=== PATIENT | female | born 1970 | race Caucasian/White ===

== ENCOUNTER 2017-12-13 09:40 | Inpatient (IN) | payer MEDICAID ==
[2017-12-13] MEDS ORDERED: Dexamethasone 4 MG/ML SDV ONE (09:41)
[2017-12-13] MEDS ORDERED: Succinylcholine 200 MG/10 ML MDV ONE (09:41)
[2017-12-13] MEDS ORDERED: Propofol 200 MG/20 ML SDV ONE (09:41)
[2017-12-13] MEDS ORDERED: Neostigmine Methylsulfate 1 MG/ML 5 ML Syringe ONE (09:41)
[2017-12-13] MEDS ORDERED: Ondansetron 4 MG/2 ML SDV ONE (09:41)
[2017-12-13] MEDS ORDERED: Glycopyrrolate 0.2 MG/ML 5 ML MDV ONE (09:41)
[2017-12-13] MEDS ORDERED: Rocuronium 50 MG/5 ML Vial ONE (09:41)
[2017-12-13] MEDS ORDERED: Acetaminophen 500 MG Tab PO ONE (09:45)
[2017-12-13] MEDS ORDERED: fentaNYL 250 MCG/5 ML SDV ONE ×2 (09:55→11:58)
[2017-12-13] MEDS ORDERED: Albuterol/Ipratropium 3.0-0.5 MG/3 ML Neb Soln NEB ONE (11:05)
[2017-12-13] MEDS ORDERED: ceFAZolin 1 GM in Premix Bag 1 BAG IV ONE (11:15)
[2017-12-13] MEDS: Dextrose 5%-Lactated Ringers 1,000 ML IV SCH ×2 (11:26→17:00)
[2017-12-13] MEDS ORDERED: Ketamine 500 MG/5 ML MDV IV ONE (11:30)
[2017-12-13] MEDS ORDERED: hydrOXYzine HCl 100 MG/2 ML SDV IM ONE (13:40)
[2017-12-13] MEDS ORDERED: Albuterol/Ipratropium 3.0-0.5 MG/3 ML Neb Soln INH PRN (14:38)
[2017-12-13] MEDS ORDERED: Ondansetron 4 MG/2 ML SDV IV PRN (14:38)
[2017-12-13] MEDS ORDERED: Naloxone 0.4 MG/ML SDV IV PRN (14:45)
[2017-12-13] MEDS ORDERED: HYDROmorphone/Normal Saline 15 MG/30 ML PCA IV PRN (14:45)
[2017-12-13] MEDS: Albuterol/Ipratropium 3.0-0.5 MG/3 ML Neb Soln INH SCH ×2 (16:08→21:46)
[2017-12-13] MEDS ORDERED: PROGESTERONE 200 MG PO SCH ×2 (17:00→21:00)
[2017-12-13] MEDS: ceFAZolin 1 GM in Premix Bag 1 BAG IV SCH (17:31)
[2017-12-14] MEDS: ceFAZolin 1 GM in Premix Bag 1 BAG IV SCH ×2 (02:45→09:31)
[2017-12-14] MEDS ORDERED: Acetaminophen/HYDROcodone 325-5 MG Tab PO PRN (07:19)
[2017-12-14] MEDS ORDERED: Ondansetron 4 MG Tab.DIS PO PRN (07:20)
[2017-12-14] MEDS ORDERED: Levothyroxine 112 MCG Tab PO SCH (07:30)
[2017-12-14] MEDS ORDERED: Levothyroxine 100 MCG Tab PO SCH (07:30)
[2017-12-14 07:43] VITALS: BP 131/74
[2017-12-14] MEDS: Albuterol/Ipratropium 3.0-0.5 MG/3 ML Neb Soln INH SCH ×2 (07:46→10:49)
[2017-12-14] MEDS ORDERED: HYDROmorphone 2 MG Tab PO PRN (08:02)
[2017-12-14] MEDS ORDERED: Non-Formulary Medication 1 Each (Estradiol [Estradiol] 1 MG) PO SCH (09:00)
[2017-12-14] MEDS ORDERED: CYTOMEL PO SCH (09:00)
[2017-12-14] MEDS ORDERED: LEVOTHYROXINE SODIUM 100 MCG PO SCH (09:00)
[2017-12-14] MEDS ORDERED: Estradiol 0.5 MG Tab PO SCH (09:00)
[2017-12-14] MEDS ORDERED: PROGESTERONE MICRONIZED 200 MG PO SCH (09:00)
[2017-12-14] MEDS ORDERED: [UNRECOGNIZED DRUG - REMARK] TOP SCH (09:00)
[2017-12-14] MEDS ORDERED: PROGESTERONE 200 MG PO SCH (09:00)
[2017-12-14] MEDS ORDERED: LIOTHYRONINE PO SCH (09:00)
--- NOTE | 2017-12-14 09:56 | PCM.DCSUM1 ---
Discharge Summary - Hospital Course HPI Initial Comments: Patient admitted on 12/13/17 for surgery to remove right thyroid nodule. Brief History: Patient underwent right thyroid lobectomy with frozen section on 12/13/2017. Per pathologist verbal report, the nodule was found to be benign and thyroidectomy was not needed. She remained NPO until 12/14/2017 when diet was advanced to regular. Dressing was removed POD 1 with steri strips left in place. She reported that her pain had been controlled throughout her admission and was wanting to go home on POD 1. She had no voice concerns and was feeling well. She denied having any concerns and felt well on day of discharge. - Discharge Data Discharge Date: 12/14/17 Discharge Disposition: Home, Self-Care 01 Condition: Good - Discharge Diagnosis/Problem(s) (1) Status post thyroidectomy SNOMED Code(s): 438587519, [id number], [id number] ICD Code: E89.0 - POSTPROCEDURAL HYPOTHYROIDISM Status: Acute Current Visit: Yes Problem Details: right lobectomy - Patient Instructions Diet: Usual Diet as Tolerated (avoid hard crunchy foods ), Drink 8-10+ Glasses/ Day Activity: No Lifting Over 10 Pounds (for 6 weeks) Activity, Other: No repetitive head and neck movement Driving: Do Not Drive (while on pain medication) Showering/Bathing: May Shower Wound/Incision Care: Keep Operative Site/Wound Site Clean and Dry Notify Provider of: Swelling and Redness, Drainage, Nausea and/or Vomiting - Discharge Plan Prescriptions/Med Rec: HYDROmorphone [Dilaudid] 2 - 4 mg PO Q4H PRN #30 tablet PRN Reason: Pain Home Medications: Home Meds Estradiol 1 mg PO DAILY 05/13/17 [History] Estradiol [Climara] 2 each TOP WEEKLY 05/13/17 [History] Levothyroxine Sodium [Tirosint] 100 mcg PO DAILY 05/13/17 [History] Liothyronine [Cytomel] 50 mcg PO DAILY 05/13/17 [History] Progesterone,Micronized [Prometrium] 200 mg PO QAM 05/13/17 [History] Progesterone,Micronized [Prometrium] 400 mg PO QPM 05/13/17 [History] HYDROmorphone [Dilaudid] 2 - 4 mg PO Q4H PRN #30 tablet 12/14/17 [Rx] Patient Handouts: Thyroid Lobectomy, Care After, Preventing Constipation After Surgery Referrals: Sidney Castelan MD [Physician] - 12/22/17 9:00 am - General Info Date of Service: 12/14/17 Admission Dx/Problem (Free Text: right thyroid nodule Subjective Update: Patient reports that she is feeling well. States that her neck and throat are a little sore, but pain is controlled. She denies having any concerns and is wanting to go home. Functional Status: Reports: Pain Controlled, Tolerating Diet (ice chips only), Ambulating, Urinating - Review of Systems General: Reports: No Symptoms HEENT: Reports: Sore Throat Pulmonary: Reports: No Symptoms Cardiovascular: Reports: No Symptoms Gastrointestinal: Reports: No Symptoms Genitourinary: Reports: No Symptoms Musculoskeletal: Reports: No Symptoms Skin: Reports: No Symptoms Neurological: Reports: No Symptoms Psychiatric: Reports: No Symptoms - Patient Data Vitals - Most Recent: Last Vital Signs Temp 36.4 C 12/14/17 07:40 Pulse 74 12/14/17 07:54 Resp 16 12/14/17 07:40 BP 131/74 12/14/17 07:40 Pulse Ox 97 12/14/17 07:40 Weight - Most Recent: 72.575 kg I&O - Last 24 hours: Intake & Output 12/13/17 12/14/17 12/14/17 22:59 06:59 14:59 Intake Total 835 1047 Output Total 600 600 Balance 235 447 Med Orders - Current: Current Medications Albuterol/Ipratropium (Duoneb 3.0-0.5 Mg/3 Ml) 3 ml INH QIDRT [facility] Last Admin: 12/14/17 07:46 Dose: 3 ml Albuterol/Ipratropium (Duoneb 3.0-0.5 Mg/3 Ml) 3 ml INH ASDIRECTED PRN PRN Reason: Shortness of Breath Estradiol (Estradiol) 1 mg PO DAILY [facility] Last Admin: 12/14/17 08:52 Dose: Not Given Estradiol (Climara) 0.2 mg TOP Q7D [facility] Hydromorphone HCl (Dilaudid) 2 - 4 mg PO Q4H PRN PRN Reason: Pain Last Admin: 12/14/17 08:12 Dose: 4 mg Dextrose/Lactated Ringer's (Dextrose 5%-Lactated Ringers) 1,000 mls @ 100 mls/ hr IV ASDIRECTED [facility] Last Admin: 12/13/17 17:00 Dose: 100 mls/hr Cefazolin Sodium/Dextrose 1 gm (/ Premix) 50 mls @ 100 mls/hr IV Q8H [facility] Stop: 12/14/17 10:59 Last Admin: 12/14/17 09:31 Dose: 100 mls/hr Levothyroxine Sodium (Synthroid) 100 mcg PO ACBREAKFAST [facility] Last Admin: 12/14/17 07:19 Dose: Not Given Verify Estradiol (Patch) 0 each TOP DAILY [facility] Last Admin: 12/14/17 08:52 Dose: Not Given Ondansetron HCl (Zofran) 4 mg IV Q4H PRN PRN Reason: N/V Ondansetron HCl (Zofran Odt) 4 mg PO Q4H PRN PRN Reason: Nausea/Vomiting Cytomel 25mcg Tab ( (Ptom)) 0 each PO DAILY [facility] Last Admin: 12/14/17 09:34 Dose: 1 each Prometrium 200mg Cap ((Ptom)) 0 each PO DAILY [facility] Last Admin: 12/14/17 09:35 Dose: Not Given Prometrium 200mg Tab ((Ptom)) 0 each PO BEDTIME [facility] Last Admin: 12/13/17 21:46 Dose: 2 each Discontinued Medications Acetaminophen (Tylenol Extra Strength) 1,000 mg PO ONETIME ONE Stop: 12/13/17 09:46 Last Admin: 12/13/17 10:32 Dose: 1,000 mg Hydrocodone Bitart/Acetaminophen ([place] 325-5 Mg) 1 - 2 tab PO Q4H PRN PRN Reason: Pain Albuterol/Ipratropium (Duoneb 3.0-0.5 Mg/3 Ml) 3 ml NEB ONETIME ONE Stop: 12/13/17 11:06 Last Admin: 12/13/17 11:18 Dose: 3 ml Dexamethasone (Dexamethasone) Confirm Administered Dose 4 mg .ROUTE .STK-MED ONE Stop: 12/13/17 09:42 Fentanyl (Sublimaze) Confirm Administered Dose 250 mcg .ROUTE .STK-MED ONE Stop: 12/13/17 09:56 Fentanyl (Sublimaze) Confirm Administered Dose 250 mcg .ROUTE .STK-MED ONE Stop: 12/13/17 11:59 Glycopyrrolate (Robinul) Confirm Administered Dose 1 mg .ROUTE .STK-MED ONE Stop: 12/13/17 09:42 Hydromorphone HCl (Dilaudid Leather Etcher 15 Mg In Ns 30 Ml) 0 mg IV ASDIRECTED PRN; Protocol PRN Reason: INFRASTRUCTURE ANALYST PAIN CONTROL Last Admin: 12/13/17 14:54 Dose: 15 mg Hydroxyzine HCl (Vistaril) 100 mg IM ONETIME ONE Stop: 12/13/17 13:41 Last Admin: 12/13/17 13:32 Dose: 100 mg Cefazolin Sodium/Dextrose 1 gm (/ Premix) 50 mls @ 100 mls/hr IV ONETIME ONE Stop: 12/13/17 11:44 Last Admin: 12/13/17 11:23 Dose: 100 mls/hr Ketamine HCl 100 mg/ Sodium (Chloride) 100 mls @ 17.4 mls/hr IV ASDIRECTED KATHRYN Stop: 12/13/17 13:30 Ketamine HCl (Ketalar) 29 mg IV ONETIME ONE Stop: 12/13/17 11:31 Last Admin: 12/13/17 14:40 Dose: Not Given Naloxone HCl (Narcan) 0.1 mg IV ASDIRECTED PRN PRN Reason: decreased respiratory rate Neostigmine Methylsulfate (Neostigmine) Confirm Administered Dose 5 mg .ROUTE .STK-MED ONE Stop: 12/13/17 09:42 Ondansetron HCl (Zofran) Confirm Administered Dose 4 mg .ROUTE .STK-MED ONE Stop: 12/13/17 09:42 Prometrium 200mg Tab ((Ptom)) 0 each PO QPM [facility] Last Admin: 12/13/17 17:29 Dose: Not Given Propofol (Diprivan 20 Ml) Confirm Administered Dose 200 mg .ROUTE .STK-MED ONE Stop: 12/13/17 09:42 Rocuronium [place] (Zemuron) Confirm Administered Dose 50 mg .ROUTE .STK-MED ONE Stop: 12/13/17 09:42 Succinylcholine Chloride (Quelicin) Confirm Administered Dose 400 mg .ROUTE .STK -MED ONE Stop: 12/13/17 09:42 - Exam General: Reports: Alert, Oriented, Cooperative, No Acute Distress HEENT: Reports: Pupils Equal, Pupils Reactive Neck: Reports: Supple, Other (steri-strips intact over incision) Lungs: Reports: Clear to Auscultation, Normal Respiratory Effort Cardiovascular: Reports: Regular Rate, Regular Rhythm GI/Abdominal Exam: Normal Bowel Sounds, Soft, Non-Tender (Female) Exam: Deferred Rectal (Female) Exam: Deferred Back Exam: Reports: Normal Inspection Extremities: Normal Inspection, No Pedal Edema Skin: Reports: Warm, Dry, Intact Wound/Incisions: Reports: Healing Well, Dressing Dry and Intact (steri strips) Neurological: Reports: No New Focal Deficit Psy/Mental Status: Reports: Alert, Normal Affect, Normal Mood Discharge Operative/Procedures - Procedures Performed Operations: right thyroid lobectomy with frozen section on 12/13/2017
[2017-12-14] MEDS ORDERED: PROGESTERONE MICRONIZED 400 MG PO SCH (17:00)
--- NOTE | 2017-12-21 16:28 | OR ---
DATE OF PROCEDURE: 12/13/2017 PREOPERATIVE DIAGNOSIS: Radiologically suspicious nodule, right thyroid lobe. POSTOPERATIVE DIAGNOSIS: Radiologically suspicious nodule, right thyroid lobe (follicular lesion on frozen section). OPERATIVE PROCEDURE: Thyroid exploration with right thyroid lobectomy and isthmusectomy ([id number]). ANESTHESIA: General. ERECTING CRANE OPERATOR: 1. Pearl Baldwin PA-C. 2. MARY An. 3. MARY Pearce. INDICATION FOR PROCEDURE: This 47-year-old presenting with a right thyroid nodule. Fine- needle aspiration of this was more or less nondiagnostic. The patient does sense some pressure symptoms in that area and is quite worried about potential carcinoma. She is aware that in all likelihood this will be benign, but wishes to proceed with a right thyroid lobectomy for definitive treatment of this nodule. Plan will be to proceed with the thyroid lobectomy with a frozen section. If malignancy is identified, we will then do a total thyroidectomy and if no to be based on operative findings. She is aware there is possibility that on the initial frozen section today, the findings appear to be benign, and later on found to have component of malignancy requiring re-operation for completion of the total thyroidectomy. Otherwise, potential risk including bleeding, infection, injury to the recurrent laryngeal nerve and parathyroid glands (the sequelae of these latter two potential complications had been reviewed with the patient), and she wishes to proceed. She is aware that she will likely be recommended to have a lifelong thyroid supplementation, so as to avoid hypertrophy of the remaining thyroid lobes, should that be left in place. PROCEDURE IN DETAIL: The patient was taken to the operating room, placed in supine position. After general endotracheal anesthesia was induced, she was placed with the neck somewhat extended and the upper chest and neck were then prepped and draped. A transverse collar incision was then made 2 fingerbreadths above the sternal notch in one of the natural skin creases and carried down through the skin and subcutaneous tissue and platysmal layers. Subplatysmal flaps were then raised superiorly and inferiorly in the midline fascia attached any strap muscles were then divided with electrocautery. We intentionally avoided significant dissection on the left side, so that if we needed subsequent operation those planes of dissection would be unhindered by previous dissection. The strap muscles were then retracted towards the right and the palpable nodule laterally and posteriorly. There was some degree of inflammation around that but otherwise no adherence to the overlying musculature. There was no central lymphadenopathy noted. At this point sequentially, the inferior middle thyroid veins were divided with Harmonic scalpel. At that point, the upper pole vessels were taken with Harmonic Scalpel as well. This allowed medial mobilization of the right thyroid lobe and the branches of the inferior thyroid artery were then sequentially taken with Harmonic scalpel, reflecting parathyroid glands laterally and posteriorly. During the course of the dissection, maintaining the plane medially on the thyroid capsule. At this point, the isthmus was divided more or less on the left side where it joined the left lobe so as to avoid hypertrophy across the center of the neck. This was dissected off the trachea and then the last area of dissection was in the region of ligament of [place]. The recurrent laryngeal nerve was noted to be present and upon completion of removal of the thyroid lobe, it was inspected and found to be intact. Frozen section of this lesion was consistent with a follicular lesion, one of this size would be quite clearly malignant and the decision was made at that point to complete the procedure. At this point, the area was irrigated with saline solution. The midline strap muscles were approximated with some 3-0 Vicryl stitch, the platysmal layer with 4-0 Vicryl stitch, and the skin with a 5-0 Vicryl subcuticular stitch. Steri-Strips were applied. The patient was taken to the recovery room in satisfactory condition. Physician medical clerical assistant, Pearl Baldwin played an essential role in assisting in this case, helping to position the patient, retracting structures as needed, as well as suturing and cutting sutures when indicated. Her presence improved patient safety and decreased operative time. Sidney Castelan MD /[id number]
== END 2017-12-14 10:30 | disposition home or self-care (01) | DRG 627 ==
LOC: JP.MS 09:40 → JP.SDS 09:41 → EDSTATUS 11:00 → JP.MS 13:15
PROVIDERS: ADMIT Surgery; ATTEND Surgery
PROC: 0GBH0ZZ Excision of Right Thyroid Gland Lobe, Open Approach (ICD-10-PCS; principal; 2017-12-13)
PROC: 0GBJ0ZX Excision of Thyroid Gland Isthmus, Open Approach, Diagnostic (ICD-10-PCS; 2017-12-13)
DX: E04.1 Nontoxic single thyroid nodule (principal); I10 Essential (primary) hypertension; F41.9 Anxiety disorder, unspecified; E87.6 Hypokalemia; M79.7 Fibromyalgia; R51 Headache; G89.29 Other chronic pain; M54.5 Low back pain; M54.2 Cervicalgia; R10.9 Unspecified abdominal pain; F17.200 Nicotine dependence, unspecified, uncomplicated; J45.909 Unspecified asthma, uncomplicated; K21.9 Gastro-esophageal reflux disease without esophagitis; Z88.1 Allergy status to other antibiotic agents; Z88.0 Allergy status to penicillin; Z90.710 Acquired absence of both cervix and uterus; Z79.890 Hormone replacement therapy; Z79.899 Other long term (current) drug therapy
CPT/HCPCS: 88307; 88331; 94640; 94762; A9270-GY; J0330; J0690; J1100; J1170; J2405; J2704; J2710; J3010; J3410; J7030; J7042; J7620

== ENCOUNTER 2022-10-08 06:27 | Day surgery (SDC) | payer MEDICAID ==
[2022-10-08] MEDS ORDERED: Sodium Chloride 0.9% 1,000 ML IV SCH (07:00)
[2022-10-08] MEDS ORDERED: Midazolam 1 MG/ML 2 ML SDV ONE (07:10)
[2022-10-08] MEDS ORDERED: fentaNYL 100 MCG/2 ML SDV ONE (07:10)
[2022-10-08] MEDS ORDERED: Propofol 200 MG/20 ML SDV ONE (07:10)
[2022-10-08 08:46] VITALS: BP 108/66; PULSE 57
== END 2022-10-08 08:50 | disposition home or self-care (01) ==
LOC: JP.SDS 06:27
PROVIDERS: ATTEND Internal Medicine
DX: R10.10 Upper abdominal pain, unspecified (principal); I10 Essential (primary) hypertension; F41.9 Anxiety disorder, unspecified; F32.A Depression, unspecified; N17.9 Acute kidney failure, unspecified; J45.909 Unspecified asthma, uncomplicated; Z79.899 Other long term (current) drug therapy; Z88.0 Allergy status to penicillin; Z88.5 Allergy status to narcotic agent; Z88.1 Allergy status to other antibiotic agents
CPT/HCPCS: 43235; J2250; J2704; J3010; J7030